=== PATIENT | female | born 1945 | race Caucasian/White ===

== ENCOUNTER 2017-07-06 13:29 | Inpatient (IN) | payer MEDICARE, BC ==
[~2017-07-06] VITALS: Ht 157.5 cm; Wt 77.6 kg
[2017-07-06] MEDS ORDERED: DILTIAZEM 125 MG in DEXTROSE 5% 100 ML IV SCH (13:52)
[2017-07-06] MEDS ORDERED: DILTIAZEM 5 MG/ML, 5ML IV ONE (14:00)
[2017-07-06] MEDS ORDERED: SODIUM CHLORIDE 0.9% 1,000ML IVBOLUS ONE (14:00)
[2017-07-06] MEDS ORDERED: DILTIAZEM 5 MG/ML, 5ML ONE ×2 (14:01→16:04)
[2017-07-06 14:05] LABS: BASOPHILS # (AUTO) 0.07 x10^3/uL (0-0.1); BASOPHILS % (AUTO) 1 % (0-1); EOSINOPHILS # (AUTO) 0.33 x10^3/uL (0-0.4); EOSINOPHILS % (AUTO) 5 % (1-7); LYMPHOCYTES # (AUTO) 2.52 x10^3/uL (1-3.4); LYMPHOCYTES % (AUTO) 36 % (22-44); MD NO; MEAN CORPUSCULAR HEMOGLOBIN 30.5 pg (27.0-34.8); MEAN CORPUSCULAR HGB CONC 33.9 g/dL (32.4-35.8); MEAN PLATELET VOLUME 8.9 fL (7.4-10.4); MONOCYTES # (AUTO) 0.67 x10^3/uL (0.2-0.8); MONOCYTES % (AUTO) 10 % (2-9); NEUTROPHILS # (AUTO) 3.45 x10^3/uL (1.8-6.8); NEUTROPHILS % (AUTO) 49 % (42-75); PLATELET COUNT 199 x10^3/uL (130-400); RED BLOOD COUNT 4.88 x10^6/uL (3.82-5.3); RED CELL DISTRIBUTION WIDTH 13.7 % (9.6-15.2)
[2017-07-06 14:12] LABS: INTERNATIONAL NORMALIZED RATIO 0.99 (0.93-1.1); PROTHROMBIN TIME 10.3 Seconds (9.6-11.5)
[2017-07-06 14:16] LABS: ALBUMIN 3.8 g/dL (3.4-5.0); ANION GAP 7 mmol/L (5-15); CHLORIDE 108 mmol/L (98-107); CREATININE 1.02 mg/dL (0.55-1.02)
[2017-07-06 14:19] LABS: TROPONIN I < 0.015 ng/mL (0.000-0.045)
[2017-07-06] MEDS ORDERED: OMNIPAQUE 350 MG/ML, 100ML BOTTLE ONE (15:11)
[2017-07-06] MEDS ORDERED: LOVA10TA PO (15:25)
[2017-07-06] MEDS ORDERED: OMEP-110 PO (15:25)
[2017-07-06] MEDS ORDERED: DILTIAZEM 5 MG/ML, 5ML IVPush ONE (16:30)
[2017-07-06 16:45] VITALS: BP 115/75
[2017-07-06] MEDS ORDERED: hydrALAzine 20 MG/ML, 1ML IVPush PRN (18:00)
[2017-07-06] MEDS ORDERED: morphine SULFATE 10 MG/ML, 1ML IVPush PRN (18:00)
[2017-07-06] MEDS ORDERED: TEMAZEPAM 15 MG CAPSULE PO PRN (18:00)
[2017-07-06] MEDS ORDERED: ONDANSETRON 2MG/ML, 2ML IVPush PRN (18:00)
[2017-07-06] MEDS ORDERED: DILTIAZEM 125 MG in SODIUM CHLORIDE 0.9% 100 ML IV SCH (18:00)
[2017-07-06] MEDS ORDERED: HYDROcodone/APAP 5/325 TABLET PO PRN (18:00)
[2017-07-06] MEDS ORDERED: ACETAMINOPHEN 325 MG TABLET PO PRN (18:00)
[2017-07-06] MEDS ORDERED: HEPARIN 5,000 UNITS/ML, 1ML IV PRN (18:30)
[2017-07-06] MEDS ORDERED: HEPARIN 5,000 UNITS/ML, 1ML IV ONE (18:30)
[2017-07-06] MEDS ORDERED: HEPARIN 25,000 UNITS/500ML PMX 500 ML IV PRN (18:30)
[2017-07-06 18:48] LABS: FREE T4 (FREE THYROXINE) 1.08 ng/dL (0.76-1.46); THYROID STIMULATING HORMONE 2.83 mIU/L (0.358-3.740)
[2017-07-06] MEDS: LACTATED RINGERS 1,000 ML IV SCH (18:59)
[2017-07-06 20:00] VITALS: BP 113/75
[2017-07-06] MEDS: OMEPRAZOLE 20 MG CAPSULE.DR PO SCH (20:05)
[2017-07-06 22:07] LABS: CULTURE INDICATED? YES; MICROSCOPIC AUTO
[2017-07-06 22:34] LABS: TROPONIN I < 0.015 ng/mL (0.000-0.045)
[2017-07-07] MEDS ORDERED: DILTIAZEM 125 MG in SODIUM CHLORIDE 0.9% 100 ML IV SCH
[2017-07-07 02:10] VITALS: BP 118/72
[2017-07-07] MEDS: LACTATED RINGERS 1,000 ML IV SCH ×2 (04:35→15:43)
[2017-07-07 04:46] LABS: ANION GAP 7 mmol/L (5-15); CHLORIDE 111 mmol/L (98-107); CREATININE 0.86 mg/dL (0.55-1.02)
[2017-07-07 04:53] LABS: TROPONIN I < 0.015 ng/mL (0.000-0.045)
[2017-07-07 07:29] VITALS: BP 119/76
[2017-07-07] MEDS: DILTIAZEM 30 MG TABLET PO SCH ×3 (09:38→21:07)
[2017-07-07] MEDS: LOVASTATIN 10 MG TABLET PO SCH (09:39)
[2017-07-07] MEDS: OMEPRAZOLE 20 MG CAPSULE.DR PO SCH ×2 (09:39→21:08)
[2017-07-07] MEDS ORDERED: RIVA20TA PO (13:01)
[2017-07-07 14:32] VITALS: BP 113/68
[2017-07-07] MEDS ORDERED: RIVAROXABAN 20 MG TABLET PO SCH (17:00)
[2017-07-07 19:28] VITALS: BP 130/78
[2017-07-08 01:53] VITALS: BP 114/65
[2017-07-08] MEDS: DILTIAZEM 30 MG TABLET PO SCH (03:26)
[2017-07-08 07:52] VITALS: BP 117/74
[2017-07-08] MEDS ORDERED: DILTIAZEM 120 MG CAP.ER.24H PO SCH (09:00)
[2017-07-08] MEDS: LOVASTATIN 10 MG TABLET PO SCH (09:17)
[2017-07-08] MEDS: OMEPRAZOLE 20 MG CAPSULE.DR PO SCH (09:17)
[2017-07-08] MEDS ORDERED: DILT120C2 PO (11:08)
== END 2017-07-08 11:44 | disposition home or self-care (01) | DRG 309 ==
LOC: ED 15:26 → EDIP 15:27 → ED 15:53 → 5SO 16:26
PROVIDERS: ADMIT Internal Medicine; ATTEND Internal Medicine
DX: I48.91 Unspecified atrial fibrillation (principal); D68.69 Other thrombophilia; R91.8 Other nonspecific abnormal finding of lung field; J30.2 Other seasonal allergic rhinitis; E78.00 Pure hypercholesterolemia, unspecified; E78.5 Hyperlipidemia, unspecified; K21.9 Gastro-esophageal reflux disease without esophagitis; Z80.9 Family history of malignant neoplasm, unspecified; Z85.820 Personal history of malignant melanoma of skin; Z90.49 Acquired absence of other specified parts of digestive tract; Z87.891 Personal history of nicotine dependence
CPT/HCPCS: 36415; 71045; 71275; 80048; 81001; 82040; 84439; 84443; 84484; 85025; 85520; 85610; 85730; 87086; 93005; 93306; 96374; 96376; J1644; Q9967; J7030; J7120